=== PATIENT | male | born 1955 | race African-American/Black ===

== ENCOUNTER 2018-05-11 14:22 | Outpatient (CLI) | payer OTHER ==
[~2018-05-11] VITALS: Ht 180.3 cm; Wt 74.8 kg
[2018-05-11 14:30] VITALS: BP 118/82
[2018-05-11] MEDS ORDERED: OMEPRAZOLE40 M1 ORAL (15:50)
[2018-05-11] MEDS ORDERED: NORCO 10-325 T1 EACH ORAL (15:50)
[2018-05-11] MEDS ORDERED: MILK OF MA400 MG/51 ORAL (15:50)
[2018-05-11] MEDS ORDERED: DULCOLAX10 MG RC (15:50)
--- NOTE | 2018-05-11 15:54 | GI Initial Consult Note ---
History of Present Illness General Date patient seen: May 11, 2018 Time patient seen: 15:47 Referring physician: JORDY Reason for Consultation: Constipation /G-tube dependent Present Illness HPI 62-year-old male, status post PEG in January 2018. Presents today with complaint of symptomatic GERD and constipation. The patient is currently taking milk of magnesia daily plus Scurry. The patient has no prior history of colonoscopy. Denies any unintentional weight loss or changes in dietary habits. No signs of abuse or neglect. Patient is fall risk. Allergies: Coded Allergies: No Known Allergies (Unverified , 05/11/18) Patient History PMH Narrative Myelopathy cervical Hypertension EtOH GERD Past surgical history Spinal surgery in December 2017 Left upper arm surgery in 1996 Right eye is blind Social History: Reports: smoking, alcohol use - Has quit, drug use - Marijuana use Review of Systems All Other Systems: negative except mentioned in HPI Physical Exam Temperature 97.7 Blood pressure 118/88 Pulse 85 95% room air Height 511 Weight 165 pounds Sp02 EP Interpretation: reviewed, normal General Appearance: well appearing, no apparent distress, alert Head: normocephalic EENT: PERRL/EOMI, normal ENT inspection Neck: supple Respiratory: normal breath sounds, no respiratory distress Cardiovascular: normal rate Gastrointestinal: normal inspection, non tender, soft, normal bowel sounds, non -distended Rectal: deferred Genitourinary: deferred Musculoskeletal: normal inspection, back normal Neurologic: normal inspection, alert, oriented x3, responsive Psychiatric: normal inspection, judgement/insight normal, memory normal Skin: normal inspection, normal color, no rash, warm/dry, palpation normal, well hydrated Lymphatic: normal inspection, no adenopathy GI: Plan Problems: (1) GERD (gastroesophageal reflux disease) (2) Hypertension (3) Myelopathy (4) ETOH abuse (5) Gastrostomy tube dependent (6) Constipation Plan EGD/colonoscopy with the G-tube removal scheduled for May 20, 2018. - CLD & (Nulytely/Suprep/Movi-Prep) prep instructions given and acknowledged by patient. - NPO @ MN day prior procedure explained. Will follow with additional recs post procedure. Seen with Dr. Reyes. Thank you for this patient referral. The patient was seen and examined at bedside and all new and available data was reviewed in the patients chart. I agree with the above findings, impression and plan. (Patient seen earlier today. Signature stamp does not reflect patient encounter time.). - MD Katherine CastellanosB[facility] May 11, 2018 15:54
== END 2018-05-11 14:52 | disposition home or self-care (01) ==
LOC: PAN 14:22
DX: K21.9 Gastro-esophageal reflux disease without esophagitis (principal); K59.00 Constipation, unspecified; G95.9 Disease of spinal cord, unspecified; F10.10 Alcohol abuse, uncomplicated; Z93.1 Gastrostomy status
CPT/HCPCS: 99202